=== PATIENT | female | born 1985 | race African-American/Black ===

== ENCOUNTER 2018-07-19 16:36 | Emergency (ER) | payer OTHER ==
[~2018-07-19] VITALS: Ht 170.2 cm; Wt 59.0 kg
[2018-07-19 16:43] VITALS: BP 135/76
--- NOTE | 2018-07-19 16:47 | NUR ---
pt triaged and sent to er is[facility].
--- NOTE | 2018-07-19 18:34 | NUR ---
PT TO ER BED 4
--- NOTE | 2018-07-19 19:05 | NUR ---
ASSUMED CARE OF PT AT THIS TIME. C/O LEFT ARM/LEFT LEG NUMBNESS. AAOX4 WITH EVEN AND STEADY GAIT; PATIENT STATES PAIN OF 0/10; VSS; PATIENT POSITIONED FOR COMFORT; HOB ELEVATED; BEDRAILS UP X2; BED DOWN. ER MD MADE AWARE OF PT STATUS. WILL CONTINUE TO MONITOR.
[2018-07-19 19:20] VITALS: BP 135/76
--- NOTE | 2018-07-19 19:20 | NUR ---
Patient discharged with v/s stable. Written and verbal after care instructions given and explained. Patient verbalized understanding. Ambulatory with steady gait. All questions addressed prior to discharge. Advised to follow up with PMD.
== END 2018-07-19 19:20 | disposition home or self-care (01) ==
LOC: MED 16:36
DX: R20.0 Anesthesia of skin (principal); G35 Multiple sclerosis; E11.9 Type 2 diabetes mellitus without complications
CPT/HCPCS: 96372; 99281; 99283